=== PATIENT | male | born 1995 | race Caucasian/White ===

== ENCOUNTER 2022-09-15 17:01 | Outpatient (CLI) | payer OTHER, BC | END 2022-09-15 17:02 | disposition critical access hospital (66) | LOC: EMS 17:01 | DX: S06.9X1A Unspecified intracranial injury with loss of consciousness of 30 minutes or less, initial encounter (principal); R41.0 Disorientation, unspecified; M54.50 Low back pain, unspecified; R51.9 Headache, unspecified; V59.40XA Driver of pick-up truck or van injured in collision with unspecified motor vehicles in traffic accident, initial encounter; Y92.413 State road as the place of occurrence of the external cause | CPT/HCPCS: A0425; A0429 ==

== ENCOUNTER 2022-09-15 17:19 | Emergency (ER) | payer OTHER, BC ==
[2022-09-15] MEDS ORDERED: ACETAMINOPHEN 325 MG TABLET PO STA (17:38)
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
[2022-09-15 19:41] VITALS: BP 127/84
== END 2022-09-15 19:46 | disposition home or self-care (01) ==
LOC: ED 17:19
DX: S06.0X1A Concussion with loss of consciousness of 30 minutes or less, initial encounter (principal); V43.52XA Car driver injured in collision with other type car in traffic accident, initial encounter; Y93.89 Activity, other specified
CPT/HCPCS: 70450; 71045; 72125; 74176; 99283; 99284; A9270